=== PATIENT | male | born 2005 | race Caucasian/White ===

== ENCOUNTER 2025-07-05 19:07 | Emergency (ER) | payer OTHER ==
[~2025-07-05] VITALS: Ht 182.9 cm; Wt 93.8 kg
[2025-07-05 19:41] LABS: BASO # 0.0 10^3/uL (0.0-0.2); BASO % 0.7 % (0.0-1.0); EOS # 0.4 10^3/uL (0.0-0.5); EOS % 7.4 % (0.0-3.0); LYMPH # 1.9 10^3/uL (1.5-5.0); LYMPH % 32.6 % (24.0-44.0); MONO # 0.4 10^3/uL (0.0-0.8); MONO % 7.4 % (2.0-8.0); NEUTROPHILS # 3.1 10^3/uL (1.5-8.5); NEUTROPHILS % 51.7 % (36.0-66.0); PLATELET COUNT, AUTOMATED 278 10^3/uL (150-450)
[2025-07-05 20:32] LABS: KETONE, URINE AUTO RFX NEGATIVE (NEGATIVE); LEUKOCYTE ESTERASE UR AUTO RFX NEGATIVE (NEGATIVE); NITRITE, URINE AUTO RFX NEGATIVE (NEGATIVE); RBC, URINE AUTO RFX 0 /HPF (0-3); SQUAM EPITHELIAL CELL UR AURFX 0 /HPF (0-6); WBC, URINE AUTO RFX 0 /HPF (0-3)
[2025-07-05 20:40] LABS: ALT/SGPT 28.0 U/L (7.0-40); AST/SGOT 23.0 U/L (<34); CALCIUM LEVEL 9.4 MG/DL (8.5-10.1); CARBON DIOXIDE LEVEL 29 MMOL/L (20-31); CHLORIDE LEVEL 103 MMOL/L (98-107); CREATININE FOR GFR 1.06 MG/DL (0.70-1.30); GLOMERULAR FILTRATION RATE > 90.0 (>60); POTASSIUM SERUM 4.1 MMOL/L (3.5-5.1); SODIUM LEVEL 142 MMOL/L (136-145)
[2025-07-06] MEDS ORDERED: COLA100C5 PO (01:33)
[2025-07-06] MEDS ORDERED: MIRA3350 PO (01:33)
[2025-07-06] MEDS: MAGNESIUM CITRATE 300 ML BTL PO ONE (01:38)
[2025-07-06 01:42] VITALS: BP 150/74; TEMP 98.1; O2SAT 100
== END 2025-07-06 01:40 | disposition home or self-care (01) ==
LOC: M ED 19:07
DX: R10.31 Right lower quadrant pain (principal)